=== PATIENT | female | born 1995 | race Caucasian/White ===

== ENCOUNTER 2023-07-31 03:57 | Emergency (ER) | payer MEDICAID ==
[~2023-07-31] VITALS: Ht 157.5 cm; Wt 60.9 kg
[2023-07-31 04:03] VITALS: BP 131/89; PULSE 95; RESP 16; TEMP 98.3; O2SAT 100
== END 2023-07-31 10:09 | disposition left against medical advice (07) ==
LOC: ER 03:58
DX: K08.89 Other specified disorders of teeth and supporting structures (principal); Z53.21 Procedure and treatment not carried out due to patient leaving prior to being seen by health care provider

== ENCOUNTER 2024-04-29 02:03 | Emergency (ER) | payer MEDICAID ==
[~2024-04-29] VITALS: Ht 157.5 cm; Wt 53.1 kg
[2024-04-29] MEDS ORDERED: AMOX-117 PO (02:43)
[2024-04-29] MEDS: amox tr/potassium clavulanate 875/125mg TAB PO ONE (02:50)
[2024-04-29 02:51] VITALS: BP 110/68; PULSE 68; RESP 16; TEMP 98.2; O2SAT 98
== END 2024-04-29 02:56 | disposition home or self-care (01) ==
LOC: ER 02:04
DX: K04.7 Periapical abscess without sinus (principal); Z88.2 Allergy status to sulfonamides; Z91.030 Bee allergy status
CPT/HCPCS: 99283